=== PATIENT | female | born 1980 | race American Indian/Alaskan Native ===

== ENCOUNTER 2017-03-28 18:31 | Emergency (ER) | payer OTHER ==
[2017-03-28] MEDS ORDERED: MOTRIN PO ONE (20:13)
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
[2017-03-28 22:15] VITALS: BP 151/94
== END 2017-03-28 22:13 | disposition home or self-care (01) ==
LOC: ED 18:31
DX: S13.4XXA Sprain of ligaments of cervical spine, initial encounter (principal); I10 Essential (primary) hypertension; F17.200 Nicotine dependence, unspecified, uncomplicated; V49.49XA Driver injured in collision with other motor vehicles in traffic accident, initial encounter; Y93.89 Activity, other specified; Y99.8 Other external cause status; Y92.488 Other paved roadways as the place of occurrence of the external cause
CPT/HCPCS: 99282

== ENCOUNTER 2017-07-13 08:26 | Emergency (ER) | payer SELFPAY ==
--- NOTE | 2017-07-13 11:23 | Emergency Department Report ---
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 symptoms include pain subjective swelling tingling intermittent numbness there is no sob no fever no chills no paralysis no fall injury or trauma. pt is adamant she has dvt " I believe its a clot," Complaint: leg injury Onset/Timin -: month(s) Injury: Leg: Left (calf tib/fib numbness pain tingling ) Type of Injury: other (denies injury ) Place: home Severity: moderate Severity scale (0 -10): 5 Improves With: nothing Worsens With: other (prolong sitting ) Context: other (none ) Associated Symptoms: numbness, tingling, ambulatory - Related Data Previous Rx's Medication Instructions Recorded Last Taken Type Butalb/Acetamin/Caff 50-325-40 1 tab PO Q8HR PRN #10 tablet 08/15/16 Unknown Rx [Fioricet] Cyclobenzaprine [Flexeril] 10 mg PO TID PRN #15 tablet 03/28/17 Unknown Rx Ibuprofen [Motrin 600 MG tab] 600 mg PO Q8H PRN #15 tablet 03/28/17 Unknown Rx Cyclobenzaprine [Flexeril] 10 mg PO TID PRN #30 tablet 07/13/17 Unknown Rx Gabapentin [Neurontin] 100 mg PO Q8HR #30 capsule 07/13/17 Unknown Rx Naproxen [Naprosyn TAB] 500 mg PO BID PRN #30 tablet 07/13/17 Unknown Rx Allergies Allergy/AdvReac Type Severity Reaction Status Date / Time No Known Allergies Allergy Unverified 08/14/16 16:53 ED Review of Systems ROS: Stated complaint: NUMBNESS/TINGLING IN LEFT LEG Other details as noted in HPI Constitutional: denies: chills, fever Eyes: denies: eye pain, eye discharge, vision change ENT: denies: ear pain, throat pain Respiratory: denies: cough, shortness of breath, wheezing Cardiovascular: denies: chest pain, palpitations Endocrine: no symptoms reported Gastrointestinal: denies: abdominal pain, nausea, diarrhea Genitourinary: as per HPI Musculoskeletal: myalgia. denies: back pain, joint swelling, arthralgia Skin: denies: rash, lesions Neurological: denies: headache, weakness, paresthesias Psychiatric: denies: anxiety, depression Hematological/Lymphatic: denies: easy bleeding, easy bruising ED Past Medical Hx - Past Medical History Previous Medical History?: Yes Hx Hypertension: Yes - Surgical History Past Surgical History?: Yes Additional Surgical History: - Social History Smoking Status: Former Smoker Substance Use Type: Alcohol - Medications Home Medications: Home Medications Medication Instructions Recorded Confirmed Last Taken Type Butalb/Acetamin/Caff 50-325-40 1 tab PO Q8HR PRN #10 tablet 08/15/16 Unknown Rx [Fioricet] Cyclobenzaprine [Flexeril] 10 mg PO TID PRN #15 tablet 03/28/17 Unknown Rx Ibuprofen [Motrin 600 MG tab] 600 mg PO Q8H PRN #15 tablet 03/28/17 Unknown Rx Cyclobenzaprine [Flexeril] 10 mg PO TID PRN #30 tablet 07/13/17 Unknown Rx Gabapentin [Neurontin] 100 mg PO Q8HR #30 capsule 07/13/17 Unknown Rx Naproxen [Naprosyn TAB] 500 mg PO BID PRN #30 tablet 07/13/17 Unknown Rx ED Physical Exam - General Limitations: No Limitations General appearance: alert, in no apparent distress - Head Head exam: Present: atraumatic, normocephalic - Eye Eye exam: Present: normal appearance - ENT ENT exam: Present: mucous membranes moist - Neck Neck exam: Present: normal inspection, full ROM. Absent: lymphadenopathy, thyromegaly - Respiratory Respiratory exam: Present: normal lung sounds bilaterally. Absent: respiratory distress, wheezes, rales, rhonchi, stridor, chest wall tenderness - Cardiovascular Cardiovascular Exam: Present: regular rate, normal rhythm, normal heart sounds. Absent: systolic murmur, diastolic murmur, rubs, gallop - Expanded Cardiovascular Exam Expanded Peripheral pulses: 2+: Carotid (R), Carotid (L), Radial (R), Radial (L), Posterior Tibialis (R), Posterior Tibialis (L), Dorsalis Pedis (R), Dorsalis Pedis (L) - GI/Abdominal GI/Abdominal exam: Present: soft, normal bowel sounds. 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 Absent: pedal edema, joint swelling - Expanded Lower Extremity Exam Left Hip exam: Present: normal inspection, full ROM. Absent: tenderness Upper Leg exam: Present: normal inspection, full ROM. Absent: tenderness Knee exam: Present: normal inspection, full ROM. Absent: tenderness Lower Leg exam: Present: full ROM, tenderness. Absent: swelling, abrasion, laceration, ecchymosis, deformity, crepidus, dislocation, erythema, palpable cord, Bakari's sign Ankle exam: Present: normal inspection, full ROM. Absent: tenderness Foot/Toe exam: Present: normal inspection, full ROM. Absent: tenderness Neuro vascular tendon exam: Present: no vascular compromise. Absent: pulse deficit, abnormal cap refill, motor deficit, sensory deficit, tendon deficit, extremity cold to touch, pallor, abnormal 2-point discrimination, decreased fine /light touch, foot drop, peroneal nerve deficit, significant pain with passive ROM of distal joint Gait: Positive: observed and normal - Back Exam Back exam: Present: normal inspection, full ROM. Absent: tenderness, CVA tenderness (R), CVA tenderness (L), muscle spasm, paraspinal tenderness, vertebral tenderness, rash noted - Neurological Exam Neurological exam: Present: alert, oriented X3, CN II-XII intact, normal gait, motor sensory deficit - Expanded Neurological Exam Expanded Patient oriented to: Present: person, place, time Speech: Present: fluid speech Cranial nerves: EOM's Intact: Normal, Gag Reflex: Normal, Tongue Deviation: Normal, Nystagmus: Normal, Facial Sensation: Normal Cerebellar function: Finger to Nose: Normal, Heel to Conley: Normal, Romberg: Normal Upper motor neuron: Joseph Neglect: Normal, Pronator Drift: Normal, Babinski Sign : Normal, Sensory Extinction: Normal Sensory exam: Upper Extremity Light Touch: Normal, Upper Extremity Pin Prick: Normal, Upper Extremity Temperature: Normal, UE 2 Point Discrimination: Normal, Lower Extremity Light Touch: Normal, Lower Extremity Pin Prick: Normal, Lower Extremity Temperature: Normal, LE 2 Point Discrimination: Normal Motor strength exam: RUE: 5, LUE: 5, RLE: 5, LLE: 5 DTR: bicep (R): 2+, bicep (L): 2+, tricep (R): 2+, tricep (L): 2+, knee (R): 2+ , knee (L): 2+, ankle (R): 2+, ankle (L): 2+ Best Eye Response (Bran): (4) open spontaneously Best Motor Response (Isabella): (6) obeys commands Best Verbal Response (Isabella): (5) oriented Bran Total: 15 - Psychiatric Psychiatric exam: Present: normal affect, normal mood - Skin Skin exam: Present: warm, dry, intact, normal color. Absent: rash ED Course Vital Signs 07/13/17 07/13/17 08:39 12:23 Temperature 98.4 F 98.8 F Pulse Rate 71 65 Respiratory 16 16 Rate Blood Pressure 163/111 Blood Pressure 150/103 [Left] O2 Sat by Pulse 99 Oximetry ED Lower Extremity MDM - Lab Data Result diagrams: 07/13/17 11:27 07/13/17 11:27 Laboratory Tests 07/13/17 07/13/17 07/13/17 11:27 11:27 11:27 WBC 4.7 RBC 4.26 Hgb 9.2 L Hct 29.2 L MCV 69 L MCH 22 L MCHC 31 RDW 18.3 H Plt Count 350 Lymph % (Auto) 32.0 Mora % (Auto) 9.5 H Eos % (Auto) 1.1 Baso % (Auto) 1.0 Lymph # 1.5 Mora # 0.4 Eos # 0.1 Baso # 0.0 Seg Neutrophils % 56.4 Seg Neutrophils # 2.7 PT 13.6 INR 1.05 APTT 30.9 Sodium 139 Potassium 3.9 Chloride 101.9 Carbon Dioxide 24 Anion Gap 17 BUN 9 Creatinine 0.6 L Estimated GFR > 60 BUN/Creatinine Ratio 15.00 Glucose 83 Calcium 8.7 Total Bilirubin 0.30 AST 18 ALT 10 Alkaline Phosphatase 45 Total Protein 7.2 Albumin 4.1 Albumin/Globulin Ratio 1.3 Laboratory Tests 07/13/17 07/13/17 07/13/17 11:27 11:27 11:27 WBC 4.7 RBC 4.26 Hgb 9.2 L Hct 29.2 L MCV 69 L MCH 22 L MCHC 31 RDW 18.3 H Plt Count 350 Lymph % (Auto) 32.0 Mora % (Auto) 9.5 H Eos % (Auto) 1.1 Baso % (Auto) 1.0 Lymph # 1.5 Mora # 0.4 Eos # 0.1 Baso # 0.0 Seg Neutrophils % 56.4 Seg Neutrophils # 2.7 PT 13.6 INR 1.05 APTT 30.9 Sodium 139 Potassium 3.9 Chloride 101.9 Carbon Dioxide 24 Anion Gap 17 BUN 9 Creatinine 0.6 L Estimated GFR > 60 BUN/Creatinine Ratio 15.00 Glucose 83 Calcium 8.7 Total Bilirubin 0.30 AST 18 ALT 10 Alkaline Phosphatase 45 Total Protein 7.2 Albumin 4.1 Albumin/Globulin Ratio 1.3 Urine Color Urine Turbidity Urine pH Ur Specific [place] Urine Protein Urine Glucose (UA) Urine Ketones Urine Blood Urine Nitrite Urine Bilirubin Urine Urobilinogen Ur Leukocyte Esterase Urine WBC (Auto) Urine RBC (Auto) U Epithel Cells (Auto) Urine Mucus Urine HCG, Qual 07/13/17 13:37 WBC RBC Hgb Hct MCV MCH MCHC RDW Plt Count Lymph % (Auto) Mor[place] % (Auto) Eos % (Auto) Baso % (Auto) Lymph # Mora # Eos # Baso # Seg Neutrophils % Seg Neutrophils # PT INR APTT Sodium Potassium Chloride Carbon Dioxide Anion Gap BUN Creatinine Estimated GFR BUN/Creatinine Ratio Glucose Calcium Total Bilirubin AST ALT Alkaline Phosphatase Total Protein Albumin Albumin/Globulin Ratio Urine Color Yellow Urine Turbidity Clear Urine pH 7.0 Ur Specific [place] 1.017 Urine Protein <15 mg/dl Urine Glucose (UA) Neg Urine Ketones Neg Urine Blood Neg Urine Nitrite Neg Urine Bilirubin Neg Urine Urobilinogen < 2.0 Ur Leukocyte Esterase Neg Urine WBC (Auto) 0.0 Urine RBC (Auto) 1.0 U Epithel Cells (Auto) 1.0 Urine Mucus Few Urine HCG, Qual Negative - Radiology Data normal study no dvt. 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 symptoms include pain subjective swelling tingling intermittent numbness there is no sob no fever no chills no paralysis no fall injury or trauma. 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 ED Disposition Clinical Impression: Leg pain Qualifiers: Laterality: left Qualified Code(s): M79.605 - Pain in left leg Neuropathic pain, leg Qualifiers: Laterality: left Qualified Code(s): G57.92 - Unspecified mononeuropathy of left lower limb Disposition: TO HOME OR SELFCARE Is pt being admited?: No Does the pt Need Aspirin: No Condition: Good Instructions: Peripheral Neuropathy (ED), Musculoskeletal Pain (ED) Prescriptions: Cyclobenzaprine [Flexeril] 10 mg PO TID PRN #30 tablet PRN Reason: Muscle Spasm Gabapentin [Neurontin] 100 mg PO Q8HR #30 capsule Naproxen [Naprosyn TAB] 500 mg PO BID PRN #30 tablet PRN Reason: Pain Referrals: PRIMARY CARE, [Primary Care Provider] - 3-5 Days Forms: Work/School Release Form(ED) Time of Disposition: 13:56
[2017-07-13 12:12] LABS: Eosinophils % (Auto) 1.1 % (0.0-4.3); Hematocrit 29.2 % (30.3-42.9); Hemoglobin 9.2 gm/dl (10.1-14.3); Mean Corpuscular HGB Conc 31 % (30-34); Platelet Count 350 K/mm3 (140-440); Red Blood Count 4.26 M/mm3 (3.65-5.03); Red Cell Distribution Width 18.3 % (13.2-15.2); White Blood Count 4.7 K/mm3 (4.5-11.0)
[2017-07-13 12:16] LABS: Mean Corpuscular Hemoglobin 22 pg (28-32); Mean Corpuscular Volume 69 fl (79-97)
[2017-07-13 12:23] LABS: INR 1.05 (0.87-1.13); Partial Thromboplastin Time 30.9 Sec. (24.2-36.6)
[2017-07-13 12:25] VITALS: BP 150/103
[2017-07-13 12:41] LABS: Alanine Aminotransferase 10 units/L (7-56); Albumin 4.1 g/dL (3.9-5); Albumin/Globulin Ratio 1.3 %; Alkaline Phosphatase 45 units/L (35-129); Blood Urea Nitrogen 9 mg/dL (7-17); Calcium 8.7 mg/dL (8.4-10.2); Carbon Dioxide 24 mmol/L (22-30); Glucose 83 mg/dL (65-100); Total Protein 7.2 g/dL (6.3-8.2)
[2017-07-13 12:42] LABS: Anion Gap 17 mmol/L; Chloride 101.9 mmol/L (98-107); Potassium 3.9 mmol/L (3.6-5.0); Sodium 139 mmol/L (137-145)
[2017-07-13 13:52] LABS: Bilirubin,Urine NEG (Negative); Blood,Urine NEG (Negative); Ketones,Urine NEG (Negative); Leukocyte Esterase,Urine NEG (Negative); Mucus,Urine FEW /HPF; Nitrite,Urine NEG (Negative); Protein,Urine <15 mg/dL mg/dL (Negative); Urobilinogen,Urine < 2.0 mg/dL (<2.0)
--- NOTE | 2017-07-16 07:30 | Vascular Lab Report ---
Left Lower Extremity Venous Duplex Study: Reason for Exam: Pain of the left lower extremity. Comments on the Right: A limited duplex study was done of the proximal veins of the right lower extremity. All veins visualized are freely compressible without evidence of internal echogenicity. Flow is spontaneous and phasic throughout. No evidence of acute or chronic thrombus is seen in any of the vessels visualized. Comments on the Left: All veins visualized are freely compressible without evidence of internal echogenicity. Flow is spontaneous and phasic throughout. No evidence of acute or chronic thrombus is seen in any of the vessels visualized. Impression: No evidence of acute or chronic deep venous thrombosis in the left lower extremity.
== END 2017-07-13 14:12 | disposition home or self-care (01) ==
LOC: ED 08:26
DX: G57.92 Unspecified mononeuropathy of left lower limb (principal); I10 Essential (primary) hypertension; Z87.891 Personal history of nicotine dependence
CPT/HCPCS: 36415; 80053; 81001; 81025; 85025; 85610; 85730; 99284

== ENCOUNTER 2017-09-07 12:25 | Emergency (ER) | payer SELFPAY ==
[2017-09-07 12:51] VITALS: BP 150/94
[2017-09-07 13:35] LABS: Alanine Aminotransferase 12 units/L (7-56); Albumin 4.2 g/dL (3.9-5); Albumin/Globulin Ratio 1.5 %; Alkaline Phosphatase 49 units/L (35-129); Anion Gap 19 mmol/L; BUN/Creatinine Ratio 17; Blood Urea Nitrogen 12 mg/dL (7-17); Calcium 9.2 mg/dL (8.4-10.2); Carbon Dioxide 22 mmol/L (22-30); Chloride 102.4 mmol/L (98-107); Glucose 127 mg/dL (65-100); Potassium 4.3 mmol/L (3.6-5.0); Sodium 139 mmol/L (137-145)
[2017-09-07 14:02] LABS: Eosinophils % (Auto) 1.5 % (0.0-4.3); Hematocrit 29.3 % (30.3-42.9); Hemoglobin 9.4 gm/dl (10.1-14.3); Mean Corpuscular HGB Conc 32 % (30-34); Platelet Count 306 K/mm3 (140-440); Red Blood Count 4.21 M/mm3 (3.65-5.03); White Blood Count 5.1 K/mm3 (4.5-11.0)
[2017-09-07 14:17] LABS: Mean Corpuscular Hemoglobin 22 pg (28-32); Mean Corpuscular Volume 70 fl (79-97); Red Cell Distribution Width 20.3 % (13.2-15.2)
== END 2017-09-07 21:10 | disposition left against medical advice (07) ==
LOC: ED 12:25
DX: R51 Headache (principal); Z53.21 Procedure and treatment not carried out due to patient leaving prior to being seen by health care provider
CPT/HCPCS: 36415; 80053; 82962; 85025; 93005; 93010